=== PATIENT | female | born 1930 | race Caucasian/White ===

== ENCOUNTER 2016-11-09 01:05 | Emergency (ER) | payer OTHER ==
[2016-11-09 01:30] VITALS: RESP 16
--- NOTE | 2016-11-09 03:53 | EDPHY ---
H & P Stated Complaint: UNWITNESSED FALL Time Seen by Provider: 11/09/16 02:13 HPI/ROS: HPI The patient presents brought in by ambulance after a fall which occurred at her intermediate. Apparently, she was found on the ground after an unwitnessed fall. She was complaining that both of her hips hurt. She is not able to provide any further history because of her dementia. However review of her med list reveals that she is not on any anticoagulation REVIEW OF SYSTEMS Unable to obtain given patient's dementia. PMHx: COPD, CHF, atrial fibrillation Soc Hx: group home resident PHYSICAL General Appearance: Alert, no distress Eyes: Pupils equal and round no pallor or injection ENT, Mouth: Mucous membranes moist Respiratory: There are no retractions, lungs are clear to auscultation Cardiovascular: Regular rate Gastrointestinal: Abdomen is soft and non-tender, no masses, bowel sounds normal Neurological: A&O, moves all extremities Skin: Warm and dry, no rashes Musculoskeletal: Neck is supple non tender Extremities: symmetrical, full range of motion Source: EMS Exam Limitations: Physical impairment - Personal History Current Tetanus Diphtheria and Acellular Pertussis (TDAP): Unsure - Medical/Surgical History Other PMH: COPD,CHF,AFIB,UTI,DEMENTIA - Social History Smoking Status: Unknown if ever smoked Constitutional: Initial Vital Signs Temperature (C) 36.4 C 11/09/16 01:21 Heart Rate 89 11/09/16 01:21 Respiratory Rate 16 11/09/16 01:21 Blood Pressure 120/100 H 11/09/16 01:21 O2 Sat (%) 93 11/09/16 01:21 O2 Delivery Mode Nasal Cannula O2 (L/minute) 2 Allergies/Adverse Reactions: codeine Allergy (Verified 11/09/16 01:17) iodine Allergy (Verified 11/09/16 01:17) morphine Allergy (Verified 11/09/16 01:17) Sulfa (Sulfonamide Antibiotics) Allergy (Verified 11/09/16 01:17) Home Medications: Medication Instructions Recorded Aspirin 11/09/16 Digoxin 11/09/16 Fluticasone Furoate 11/09/16 GABAPENTIN 11/09/16 LYSINE 11/09/16 Omeprazole 11/09/16 Seroquel 11/09/16 traZODone 11/09/16 Medical Decision Making - Diagnostics Imaging: CT head non con reveals no acute intracranial hemorrhage, discussed with Dr. Patel of Radiology. CT hips two views shows left right hip arthroplasty, no fracture visualized, interpreted by me, radiology interpretation is pending. Differential Diagnosis: This is an 86-year-old intermediate resident with dementia, who is brought in by ambulance after an unwitnessed fall, complaining of hip pain though able to ambulate. She has no external signs of trauma that I can see. Differential diagnosis includes hip fracture, hip dislocation, intracranial hemorrhage. In the emergency room, patient had x-rays of her hips and CT of her head performed which showed no acute injuries. She will be discharged back to her intermediate. Departure - Departure Disposition: Home, Routine, Self-Care Clinical Impression: Fall Condition: Fair Instructions: Fall Prevention (ED) Referrals: ARMAND MARES [Primary Care Provider] - As per Instructions
[2016-11-09 05:24] VITALS: BP 115/75; PULSE 74; TEMP 98.1; O2SAT 95
== END 2016-11-09 05:15 | disposition home or self-care (01) ==
DX: Z04.3 Encounter for examination and observation following other accident (principal); J44.9 Chronic obstructive pulmonary disease, unspecified; I50.9 Heart failure, unspecified; W19.XXXA Unspecified fall, initial encounter; Y92.129 Unspecified place in nursing home as the place of occurrence of the external cause

== ENCOUNTER 2016-11-10 09:10 | Inpatient (IN) | payer OTHER ==
--- NOTE | 2016-11-10 09:24 | CPEKG ---
Heart Rate: 155 RR Interval: 387 QRSD Interval: 72 QT Interval: 252 QTC Interval: 405 QRS Dale: 62 T Wave Dale: 249 EKG Severity - ABNORMAL ECG - EKG Impression: ATRIAL FIBRILLATION WITH RAPID V-RATE EKG Impression: VENTRICULAR PREMATURE COMPLEX EKG Impression: ABNRM R PROG, CONSIDER ASMI OR LEAD PLACEMENT EKG Impression: REPOLARIZATION ABNORMALITY, PROB RATE RELATED Electronically Signed By: Tim Mckeon 10-Nov-2016 15:42:01
[2016-11-10] MEDS ORDERED: LORazepam 2 MG/ML INJ IVP ONE ×2 (09:44→14:00)
--- NOTE | 2016-11-10 09:44 | EDPHY ---
H & P Time Seen by Provider: 11/10/16 09:17 HPI/ROS: Chief complaint. Agitation HPI. 86-year-old female here by EMS with agitation from group home. She was seen yesterday in our emergency department after a fall and normal workup was discharged back to group home. Apparently she has had similar agitation with previous urinary tract infections and there is some evidence of apparently the patient has been diagnosed with the UTI but maybe not being treated. The patient is nonverbal and does not express any particular concerns or discomfort. She is agitated. ROS Constitutional. no fever/chills, no weakness Eyes. no problems with vision ENT. no sore throat, no nasal drainage Cardiovascular. no chest pain Respiratory. no shortness of breath, no cough Abdominal. no abdominal pain, no nausea/vomiting, no diarrhea . Possible urinary tract infection MS. no calf pain/swelling, no neck/back pain, no joint pain Skin. no rash Lymph. no swollen glands Neuro. Agitated Past Medical/Surgical History: Past medical history COPD, congestive heart failure, atrial fibrillation, dementia Social History: , nonsmoker, no alcohol. Lives at [facility] Smoking Status: Unknown if ever smoked Physical Exam: General Appearance: Agitated nonverbal well-developed female mild distress vital signs are stable though initial heart rate 112 Eyes: Pupils equal and round no pallor or injection. ENT, Mouth: Mucous membranes are moist. Respiratory: There are no retractions, lungs are clear to auscultation. Cardiovascular: Irregularly irregular rate and rhythm Gastrointestinal: Abdomen is soft and nontender, no masses, bowel sounds normal. Neurological: Awake and alert, sensory and motor exams grossly normal. Skin: Warm and dry, no rashes. Musculoskeletal: Neck is supple nontender. Extremities symmetrical, full range of motion. Psychiatric: Patient is nonverbal. She is agitated Constitutional: Initial Vital Signs Temperature (C) 36.7 C 11/10/16 09:21 Heart Rate 112 H 11/10/16 09:21 Respiratory Rate 18 11/10/16 09:21 Blood Pressure 173/106 H 11/10/16 09:21 O2 Sat (%) 93 11/10/16 09:21 O2 Delivery Mode Nasal Cannula O2 (L/minute) 2 Allergies/Adverse Reactions: codeine Allergy (Verified 11/10/16 09:24) iodine Allergy (Verified 11/10/16 09:24) morphine Allergy (Verified 11/10/16 09:24) Sulfa (Sulfonamide Antibiotics) Allergy (Verified 11/10/16 09:24) Home Medications: Medication Instructions Recorded Aspirin 11/09/16 Digoxin 11/09/16 Fluticasone Furoate 11/09/16 GABAPENTIN 11/09/16 LYSINE 11/09/16 Omeprazole 11/09/16 Seroquel 11/09/16 traZODone 11/09/16 Ciprofloxacin [Cipro] 500 mg PO BID #14 tab 11/10/16 Medical Decision Making - Diagnostics EKG Interpretation: EKG interpreted by me shows atrial fibrillation with normal axis. QRS is normal. Ventricular response is 155 Imaging: Chest x-ray shows no evidence for pneumonia Review of her head CT yesterday shows no evidence of intracranial injury. No hip fracture Procedures: IV normal saline, Ativan IV ED Course/Re-evaluation: Patient is treated with Ativan for her agitation. She does have evidence of slight UTI. She has apparently not been taking her oral Cipro with regularity. She is given an IV dose of Levaquin here in the emergency department When we attempted to discharge the patient the daughter was contacted and tells our nurse that she discharge her mother from [facility] today. She also declines come get the patient. The patient has effectively been abandoned without now in the destination. I discussed the case with Dr. Vance, hospitalist, who agrees to the admission. I have also discussed the case and have patient medical customer service representative trying to contact the daughter further as well as looking for placement Differential Diagnosis: Patient was seen yesterday after a fall and had normal workup including negative head CT. I reviewed the CT and hip x-rays thinking that the patient may have trauma. The daughter says that patient has agitation like this when she has a UTI. She does indeed have a mild UTI. No evidence for pneumonia - Data Points Laboratory Results: Laboratory Results 11/10/16 09:20 11/10/16 09:20 11/10/16 11/10/16 11/10/16 12:40 10:35 09:20 WBC RBC Hgb Hct MCV MCH MCHC RDW Plt Count MPV Neut % (Auto) Lymph % (Auto) Kaufman % (Auto) Eos % (Auto) Baso % (Auto) Nucleat RBC Rel Count Absolute Neuts (auto) Absolute Lymphs (auto) Absolute Monos (auto) Absolute Eos (auto) Absolute Basos (auto) Absolute Nucleated RBC Immature Gran % Immature Gran # Sodium 147 mEq/L H mEq/L (134-144) Potassium 5.1 mEq/L mEq/L (3.5-5.2) Chloride 107 mEq/L mEq/L (97-110) Carbon Dioxide 23 mEq/l mEq/l (22-31) Anion Gap 17 mEq/L H mEq/L (8-16) BUN 40 mg/dL H mg/dL (7-23) Creatinine 0.5 mg/dL L mg/dL (0.6-1.0) Estimated GFR > 60 Glucose 129 mg/dL H mg/dL (70-100) Calcium 9.8 mg/dL mg/dL (8.5-10.4) Troponin I 0.029 ng/mL ng/mL (0-0.034) Specimen Hemolysis 168 Urine Color YELLOW REJ Urine Appearance CLEAR TNP Urine pH 5.0 TNP (5.0-7.5) Ur Specific Gamaliel 1.026 TNP (1.002-1.030) Urine Protein 1+ H TNP (NEGATIVE) Urine Ketones 1+ H TNP (NEGATIVE) Urine Blood NEGATIVE TNP (NEGATIVE) Urine Nitrate NEGATIVE TNP (NEGATIVE) Urine Bilirubin NEGATIVE TNP (NEGATIVE) Urine Urobilinogen NEGATIVE EU EU TNP (0.2-1.0) Ur Leukocyte Esterase NEGATIVE TNP (NEGATIVE) Urine RBC 1-3 /hpf /hpf (0-3) Urine WBC 3-5 /hpf H /hpf (0-3) Ur Epithelial Cells NONE SEEN /lpf /lpf (NONE-1+) Urine Mucus TRACE /lpf /lpf (NONE-1+) Ur Culture Indicated? NOT INDICATED TNP (NI) Urine Glucose NEGATIVE TNP (NEGATIVE) 11/10/16 09:20 WBC 9.10 10^3/uL 10^3/uL (3.80-9.50) RBC 4.41 10^6/uL 10^6/uL (4.18-5.33) Hgb 13.4 g/dL g/dL (12.6-16.3) Hct 42.9 % % (38.0-47.0) MCV 97.3 fL fL (81.5-99.8) MCH 30.4 pg pg (27.9-34.1) MCHC 31.2 g/dL L g/dL (32.4-36.7) RDW 14.0 % % (11.5-15.2) Plt Count 447 10^3/uL H 10^3/uL (150-400) MPV 10.7 fL fL (8.7-11.7) Neut % (Auto) 76.7 % H % (39.3-74.2) Lymph % (Auto) 14.2 % L % (15.0-45.0) Kaufman % (Auto) 8.6 % % (4.5-13.0) Eos % (Auto) 0.0 % L % (0.6-7.6) Baso % (Auto) 0.2 % L % (0.3-1.7) Nucleat RBC Rel Count 0.0 % % (0.0-0.2) Absolute Neuts (auto) 6.98 10^3/uL H 10^3/uL (1.70-6.50) Absolute Lymphs (auto) 1.29 10^3/uL 10^3/uL (1.00-3.00) Absolute Monos (auto) 0.78 10^3/uL 10^3/uL (0.30-0.80) Absolute Eos (auto) 0.00 10^3/uL L 10^3/uL (0.03-0.40) Absolute Basos (auto) 0.02 10^3/uL 10^3/uL (0.02-0.10) Absolute Nucleated RBC 0.00 10^3/uL 10^3/uL (0-0.01) Immature Gran % 0.3 % % (0.0-1.1) Immature Gran # 0.03 10^3/uL 10^3/uL (0.00-0.10) Sodium Potassium Chloride Carbon Dioxide Anion Gap BUN Creatinine Estimated GFR Glucose Calcium Troponin I Specimen Hemolysis Urine Color Urine Appearance Urine pH Ur Specific Gamaliel Urine Protein Urine Ketones Urine Blood Urine Nitrate Urine Bilirubin Urine Urobilinogen Ur Leukocyte Esterase Urine RBC Urine WBC Ur Epithelial Cells Urine Mucus Ur Culture Indicated? Urine Glucose Medications Given: Discontinued Medications Sodium Chloride (Ns) 1,000 mls @ 0 mls/hr IV ONCE ONE PRN Reason: Wide Open Stop: 11/10/16 11:20 Last Admin: 11/10/16 11:19 Dose: 1,000 mls Lorazepam (Ativan Injection) 1 mg IVP EDNOW ONE Stop: 11/10/16 09:45 Last Admin: 11/10/16 09:57 Dose: 1 mg Lorazepam (Ativan) 1 mg PO EDNOW ONE Stop: 11/10/16 12:47 Last Admin: 11/10/16 12:47 Dose: 1 mg Lorazepam (Ativan Injection) 1 mg IVP EDNOW ONE Stop: 11/10/16 14:01 Last Admin: 11/10/16 14:00 Dose: 1 mg Olanzapine (Zyprexa Zydis) 5 mg PO EDNOW ONE Stop: 11/10/16 14:38 Last Admin: 11/10/16 14:51 Dose: 5 mg Trazodone HCl (Trazodone) 50 mg PO EDNOW ONE Stop: 11/10/16 14:31 Last Admin: 11/10/16 14:39 Dose: Not Given Departure - Departure Disposition: [facility] Clinical Impression: Urinary tract infection Qualifiers: Urinary tract infection type: acute cystitis Hematuria presence: without hematuria Qualified Code(s): N30.00 - Acute cystitis without hematuria Condition: Fair
[2016-11-10 09:51] LABS: % IMMATURE GRANULYOCYTES 0.3 % (0.0-1.1); ABSOLUTE IMMATURE GRANULOCYTES 0.03 10^3/uL (0.00-0.10); ADD DIFF? NO; ADD MORPH? NO; ADD SCAN? NO; ATYPICAL LYMPHOCYTE FLAG 0 (0-99); FRAGMENT RBC FLAG 0 (0-99); HEMATOCRIT 42.9 % (38.0-47.0); HEMOGLOBIN 13.4 g/dL (12.6-16.3); LEFT SHIFT FLG 0 (0-99); LIPEMIA HEMOLYSIS FLAG 80 (0-99); MEAN CELL HEMOGLOBIN 30.4 pg (27.9-34.1); MEAN CELL HEMOGLOBIN CONCENTR. 31.2 g/dL (32.4-36.7); MEAN CELL VOLUME 97.3 fL (81.5-99.8); MEAN PLATELET VOLUME 10.7 fL (8.7-11.7); PLATELET CLUMPS FLAG 10 (0-99); PLATELET COUNT 447 10^3/uL (150-400); RED BLOOD CELL COUNT 4.41 10^6/uL (4.18-5.33)
[2016-11-10 09:58] LABS: ANION GAP 17 mEq/L (8-16); CALCIUM 9.8 mg/dL (8.5-10.4); CARBON DIOXIDE 23 mEq/l (22-31); CHLORIDE 107 mEq/L (97-110); CREATININE 0.5 mg/dL (0.6-1.0); GLOMERULAR FILTRATION RATE > 60; GLUCOSE 129 mg/dL (70-100); POTASSIUM 5.1 mEq/L (3.5-5.2); SODIUM 147 mEq/L (134-144); SPECIMEN HEMOLYSIS 168
[2016-11-10 10:10] LABS: TROPONIN I 0.029 ng/mL (0-0.034)
[2016-11-10] MEDS ORDERED: NS 1,000 ML IV ONE (11:19)
[2016-11-10] MEDS ORDERED: LORazepam 2 MG/ML INJ ONE ×2 (12:28→13:55)
[2016-11-10] MEDS ORDERED: LORazepam 1 MG TAB PO ONE (12:46)
[2016-11-10 12:54] LABS: COLOR YELLOW; LEUKOCYTE ESTERASE,URINE NEGATIVE (NEGATIVE); NITRITE,URINE NEGATIVE (NEGATIVE)
[2016-11-10 12:58] LABS: MUCUS TRACE /lpf (NONE-1+)
[2016-11-10] MEDS ORDERED: traZODone 50 MG TAB PO ONE (14:30)
[2016-11-10] MEDS ORDERED: OLANZapine DISINTEGR 5 MG TAB PO ONE (14:37)
[2016-11-10] MEDS ORDERED: OLANZapine DISINTEGR 5 MG TAB ONE (14:38)
[2016-11-10] MEDS ORDERED: ONDANSETRON 4 MG/2 ML VIAL IVP PRN (15:12)
[2016-11-10] MEDS ORDERED: ONDANSETRON DISINTEGRATING 4 MG TAB PO PRN (15:12)
--- NOTE | 2016-11-10 15:22 | PDGENHP ---
History and Physical - Chief Complaint Acute agitation - History of Present Illness Primary care provider: Dr. Mae Murphy in [place] HPI: 86-year-old female presenting with acute agitation characterized as restlessness, uncooperative behavior with associated unwitnessed fall on the day prior to this presentation and resultant pain located in the bilateral hips. Per report from patient's daughter, the patient had onset of mental status changes approximately 4 days prior, with persistent duration thereafter, and a urinalysis was performed which demonstrated positive leukocyte Estrace, positive white blood cells, occasional bacteria, ketones. Patient was initiated on oral ciprofloxacin 250 mg twice daily and this was administered to the patient for 2 days. The patient's mental status continued to decline and she stopped eating and drinking 2 days prior to this presentation and she has consequently not received oral antibiotics for the past 2 days. The patient's daughter reports that she has potentially not been receiving her regular medications which include as needed oxycodone for pain relief and the patient usually utilizes this medication to alleviate osteoarthritic pain. She has also reportedly not been taking any of her other cardiac medications. The patient had been living independently in an apartment prior to experiencing fall which resulted in a hospitalization at [facility] in late September 2016. The patient was transferred from [facility] to [facility] on 10/18/2016. While the patient has been at [facility], the daughter has become concerned about the care she is receiving there. Although she has requested that the patient continue to receive cranberry juice as a homeopathic prevention of UTI, the patient has not been receiving the cranberry juice for over a week. History Information - Allergies/Home Medication List Allergies/Adverse Reactions: codeine Allergy (Verified 11/10/16 09:24) iodine Allergy (Verified 11/10/16 09:24) morphine Allergy (Verified 11/10/16 09:24) Sulfa (Sulfonamide Antibiotics) Allergy (Verified 11/10/16 09:24) Home Medications: Aspirin 11/09/16 [Last Taken Unknown] Digoxin 11/09/16 [Last Taken Unknown] Fluticasone Furoate 11/09/16 [Last Taken Unknown] GABAPENTIN 11/09/16 [Last Taken Unknown] LYSINE 11/09/16 [Last Taken Unknown] Omeprazole 11/09/16 [Last Taken Unknown] Seroquel 11/09/16 [Last Taken Unknown] traZODone 11/09/16 [Last Taken Unknown] I have personally reviewed and updated: family history, medical history, social history, surgical history - Past Medical History atrial fibrillation (On aspirin for CVA prevention), CHF (Unclear type), COPD, dementia (Moderate severity, patient is able to verbally communicate physical wants and needs but does not otherwise engage in complex conversation, she had been caring for self prior to her fall experienced in September of 2016) Additional medical history: KAROL with nocturnal oxygen. Chronic pain with continuous opiate dependency - Surgical History Reports: no pertinent surgical hx - Family History Additional family history: No recent sick family contacts - Social History Smoking Status: Unknown if ever smoked Alcohol Use: None Drug Use: None Additional social history: Completely dependent in ADLs, residing at [facility] Review of Systems ROS: 10pt was reviewed & negative except for what was stated in HPI & below Neurological: Reports: other (Agitated, encephalopathic) Physical Exam Temp Pulse Resp BP Pulse Ox 36.7 C 112 H 20 130/98 H 92 11/10/16 09:21 11/10/16 15:04 11/10/16 15:04 11/10/16 14:34 11/10/16 15:04 O2 (L/minute) 2 Constitutional: chronically ill appearing, uncomfortable, cachectic, No no apparent distress (Visibly distressed), No not in pain Ears, Nose, Mouth, Throat: no oral mucosal ulcers, other (Tacky mucous membranes ) Cardiovascular: irregularly irregular, tachycardia, edema (Trace left lower extremity), No systolic murmur Respiratory: no respiratory distress, no rales or rhonchi, clear to auscultation Gastrointestinal: normoactive bowel sounds, soft, non-tender abdomen, no palpable masses Skin: other (Scattered abrasions and fading ecchymoses) Musculoskeletal: other (Proximal muscle wasting upper extremities, lower extremities, full range of motion of the bilateral knees without pain) Neurologic: other (Alert awake oriented times 0), No facial droop Psychiatric: agitated, other (Poor concentration, patient refuses to participate in an in depth neurologic exam) Lab Data & Imaging Review 11/10/16 09:20 11/10/16 09:20 WBC 9.10 10^3/uL (3.80-9.50) 11/10/16 09:20 RBC 4.41 10^6/uL (4.18-5.33) 11/10/16 09:20 Hgb 13.4 g/dL (12.6-16.3) 11/10/16 09:20 Hct 42.9 % (38.0-47.0) 11/10/16 09:20 MCV 97.3 fL (81.5-99.8) 11/10/16 09:20 MCH 30.4 pg (27.9-34.1) 11/10/16 09:20 MCHC 31.2 g/dL (32.4-36.7) L 11/10/16 09:20 RDW 14.0 % (11.5-15.2) 11/10/16 09:20 Plt Count 447 10^3/uL (150-400) H 11/10/16 09:20 MPV 10.7 fL (8.7-11.7) 11/10/16 09:20 Neut % (Auto) 76.7 % (39.3-74.2) H 11/10/16 09:20 Lymph % (Auto) 14.2 % (15.0-45.0) L 11/10/16 09:20 Lee % (Auto) 8.6 % (4.5-13.0) 11/10/16 09:20 Eos % (Auto) 0.0 % (0.6-7.6) L 11/10/16 09:20 Baso % (Auto) 0.2 % (0.3-1.7) L 11/10/16 09:20 Nucleat RBC Rel Count 0.0 % (0.0-0.2) 11/10/16 09:20 Absolute Neuts (auto) 6.98 10^3/uL (1.70-6.50) H 11/10/16 09:20 Absolute Lymphs (auto) 1.29 10^3/uL (1.00-3.00) 11/10/16 09:20 Absolute Monos (auto) 0.78 10^3/uL (0.30-0.80) 11/10/16 09:20 Absolute Eos (auto) 0.00 10^3/uL (0.03-0.40) L 11/10/16 09:20 Absolute Basos (auto) 0.02 10^3/uL (0.02-0.10) 11/10/16 09:20 Absolute Nucleated RBC 0.00 10^3/uL (0-0.01) 11/10/16 09:20 Immature Gran % 0.3 % (0.0-1.1) 11/10/16 09:20 Immature Gran # 0.03 10^3/uL (0.00-0.10) 11/10/16 09:20 Sodium 147 mEq/L (134-144) H 11/10/16 09:20 Potassium 5.1 mEq/L (3.5-5.2) 11/10/16 09:20 Chloride 107 mEq/L (97-110) 11/10/16 09:20 Carbon Dioxide 23 mEq/l (22-31) 11/10/16 09:20 Anion Gap 17 mEq/L (8-16) H 11/10/16 09:20 BUN 40 mg/dL (7-23) H 11/10/16 09:20 Creatinine 0.5 mg/dL (0.6-1.0) L 11/10/16 09:20 Estimated GFR > 60 11/10/16 09:20 Glucose 129 mg/dL (70-100) H 11/10/16 09:20 Calcium 9.8 mg/dL (8.5-10.4) 11/10/16 09:20 Troponin I 0.029 ng/mL (0-0.034) 11/10/16 09:20 Specimen Hemolysis 168 11/10/16 09:20 Urine Color YELLOW 11/10/16 12:40 Urine Appearance CLEAR 11/10/16 12:40 Urine pH 5.0 (5.0-7.5) 11/10/16 12:40 Ur Specific [place] 1.026 (1.002-1.030) 11/10/16 12:40 Urine Protein 1+ (NEGATIVE) H 11/10/16 12:40 Urine Ketones 1+ (NEGATIVE) H 11/10/16 12:40 Urine Blood NEGATIVE (NEGATIVE) 11/10/16 12:40 Urine Nitrate NEGATIVE (NEGATIVE) 11/10/16 12:40 Urine Bilirubin NEGATIVE (NEGATIVE) 11/10/16 12:40 Urine Urobilinogen NEGATIVE EU (0.2-1.0) 11/10/16 12:40 Ur Leukocyte Esterase NEGATIVE (NEGATIVE) 11/10/16 12:40 Urine RBC 1-3 /hpf (0-3) 11/10/16 12:40 Urine WBC 3-5 /hpf (0-3) H 11/10/16 12:40 Ur Epithelial Cells NONE SEEN /lpf (NONE-1+) 11/10/16 12:40 Urine Mucus TRACE /lpf (NONE-1+) 11/10/16 12:40 Ur Culture Indicated? NOT INDICATED (NI) 11/10/16 12:40 Urine Glucose NEGATIVE (NEGATIVE) 11/10/16 12:40 Visualized and Interpreted Chest x-ray results: Yes Chest X-Ray results: no infiltrate, other (Hyperinflated) EKG Interpretation: Positive for: other (Atrial fibrillation with Q-waves in leads V2 through V3) Assessment & Plan Assessment: 86-year-old female presents with acute on chronic encephalopathy in the setting of suspected urinary tract infection Plan: 1. Acute on chronic encephalopathy. Acute, new problem this provider, further workup is indicated. Evidenced by global brain dysfunction characterized as agitation plus uncooperative behavior plus significant decline in cognitive functioning over the past 2 days resulting in patient unable to eat or drink, this is objectively an acute change from her baseline which is normally able to verbally communicate wants and needs as well as participate cooperatively in daily care, confirmed with her daughter, most likely secondary to a combination of toxic encephalopathy from inaffectively treated urinary tract infection and metabolic encephalopathy from dehydration/uremia -the patient's acute presentation is drastically different than her chronic dementia at baseline -send influenza PCR to rule out other potential causes -treat infection and dehydration -repeat chemistry and CBC in a.m. -utilize sitter preferentially for behavior modification, IV Haldol if patient safety is at risk 2. Dehydration/uremia. Acute, evidenced by BUN of 40 with a creatinine of 0.5 as well as ketones and protein in the urinalysis and a history of not eating and drinking for at least 48 hours -most likely exacerbated by her present mental status, which then exacerbate her mental status -provide IV D5/normal saline at 100 cc an hour -repeat serum chemistry in a.m. 3. Suspected urinary tract infection. In affectively treated as an outpatient with oral ciprofloxacin, patient unable to tolerate oral intake for the past 48 hours necessitating IV antibiotics in order to successfully treat -day 1 IV levofloxacin, continue for total of 3 days -will of attempt to obtain outside urine culture results from [facility]cie[facility] to help narrow spectrum coverage 4. Atrial fibrillation. Suspect per minute, continue patient on digoxin and diltiazem orally once she is able to tolerate oral intake -will give 1 dose of IV digoxin given that she is experiencing rapid ventricular response and has not been able to tolerate oral meds recently -continue aspirin 5. Congestive heart failure. Chronic, unclear type, will order outside records from primary care provider office to determine the exact type 6. COPD. Chronic, no indication of acute exacerbation 7. Chronic pain with continuous opiate dependency. Monitor patient closely for symptoms of pain as she has not been receiving her oral oxycodone for the past 2 days and would provide her with low-dose IV Dilaudid if she appears to be in pain 8. Obstructive sleep apnea. Continue patient on nocturnal oxygen Diet. Regular as tolerated Prophylaxis. High risk patient Lovenox 40 Code status. Do not resuscitate per her daughter who is her MPOA Disposition. Anticipated discharge is 11/11/2016, pending clinical resolution of condition outlined above. If patient's clinical status remains significantly altered from baseline, she will require upgraded to inpatient admission status at that time. I have discussed this patient's presentation with Dr. Tim Mckeon in the emergency department, we both agree that is appropriate to monitor this patient on a telemetry unit given her Afib RVR. I have discussed the patient's presentation with her daughter Makenzie who has provided a significant amount of the history provided in this note. Her daughter reports that she has received approval for transfer to a different facility once the patient's medical status has stabilized. Our emergency department case management coordinator is confirming the details with this daughter.
[2016-11-10] MEDS ORDERED: DIGOXIN 500 MCG/2 ML AMP IVP ONE (15:35)
[2016-11-10] MEDS: HYDROmorphONE/DILAUDID 1 MG/ML SYR IVP PRN ×2 (16:00→20:07)
[2016-11-10] MEDS: HALOPERIDOL LACT 5 MG/ML INJ IVP PRN (16:58)
[2016-11-10] MEDS ORDERED: OXYCODONE HCL 5 MG PO PRN (17:08)
[2016-11-10] MEDS ORDERED: ALBUTEROL 3 ML DEYVIAL IH PRN (17:08)
[2016-11-10] MEDS ORDERED: ALBUTEROL 60 PUFFS/8 GM MDI IH PRN (17:08)
[2016-11-10] MEDS ORDERED: Herbals/Supplements -Info Only PO SCH (17:30)
[2016-11-10] MEDS ORDERED: oxyCODONE IR 5 MG TAB PO PRN (17:54)
[2016-11-10] MEDS: FLUTICASONE PROPIONATE IH SCH (20:32)
[2016-11-10] MEDS ORDERED: NON-FORMULARY NEW DRUG (Mirtazapine [Remeron] 15 MG) PO SCH (21:00)
[2016-11-10] MEDS: QUEtiapine FUMARATE 25 MG TAB PO SCH (21:59)
[2016-11-10] MEDS: MIRTAZAPINE 15 MG TAB PO SCH (21:59)
[2016-11-10] MEDS: traZODone 50 MG TAB PO SCH (21:59)
[2016-11-10] MEDS: D5W 1/2 NS 1,000 ML IV SCH (22:01)
[2016-11-10] MEDS: guaiFENesin 600 MG TAB.ER PO SCH (22:24)
[2016-11-10] MEDS: LIDOCAINE 3% TP SCH (22:24)
[2016-11-10] MEDS: DILTIAZEM 30 MG TAB PO SCH (22:25)
[2016-11-10] MEDS: NORTRIPTYLINE HCL 10 MG CAP PO SCH (22:25)
[2016-11-10] MEDS: ACETAMINOPHEN 500 MG TAB PO SCH (22:26)
[2016-11-11] MEDS: HALOPERIDOL LACT 5 MG/ML INJ IVP PRN ×3 (00:03→18:16)
[2016-11-11] MEDS: HYDROmorphONE/DILAUDID 1 MG/ML SYR IVP PRN ×4 (01:08→20:53)
[2016-11-11] MEDS: DILTIAZEM 30 MG TAB PO SCH ×2 (05:04→12:16)
[2016-11-11 06:10] LABS: ALANINE AMINOTRANSFERASE 57 IU/L (9-52); ALBUMIN 3.4 g/dL (3.5-5.0); ALKALINE PHOSPHATASE 82 IU/L (38-126); ANION GAP 11 mEq/L (8-16); ASPARTATE AMINOTRANSFERASE 48 IU/L (14-46); BILIRUBIN,TOTAL 0.9 mg/dL (0.1-1.4); CALCIUM 9.1 mg/dL (8.5-10.4); CARBON DIOXIDE 23 mEq/l (22-31); CHLORIDE 112 mEq/L (97-110); CREATININE 0.5 mg/dL (0.6-1.0); GLOMERULAR FILTRATION RATE > 60; GLUCOSE 110 mg/dL (70-100); MAGNESIUM 2.2 mg/dL (1.6-2.3); POTASSIUM 3.7 mEq/L (3.5-5.2); SODIUM 146 mEq/L (134-144); TOTAL PROTEIN 6.2 g/dL (6.3-8.2)
[2016-11-11] MEDS ORDERED: OLANZapine 10 MG/2 ML VIAL IM ONE (07:41)
[2016-11-11] MEDS ORDERED: NON-FORMULARY NEW DRUG (Omeprazole [Prilosec 20 Mg] 20 MG) PO SCH (09:00)
[2016-11-11] MEDS ORDERED: oxyCODONE IR 5 MG TAB PO PRN (09:19)
[2016-11-11] MEDS ORDERED: CEFTRIAXONE IM 350 MG/ML SYRINGE IM SCH (09:30)
[2016-11-11] MEDS: FLUTICASONE NASAL 120 SPRAYS/16 GM MDI EACHNARE SCH (09:38)
[2016-11-11] MEDS: FLUTICASONE PROPIONATE IH SCH ×2 (09:40→22:20)
[2016-11-11] MEDS: D5W 1/2 NS 1,000 ML IV SCH ×2 (09:43→19:52)
[2016-11-11] MEDS: ENOXAPARIN 40 MG/0.4 ML SYR SC SCH (11:13)
[2016-11-11] MEDS: ASPIRIN 81 MG CHEWABLE TAB PO SCH (11:14)
[2016-11-11] MEDS: ACETAMINOPHEN 500 MG TAB PO SCH ×2 (11:14→22:19)
[2016-11-11] MEDS: guaiFENesin 600 MG TAB.ER PO SCH ×2 (11:14→22:20)
[2016-11-11] MEDS: MULTIVITAMINS 1 EACH TAB PO SCH (11:15)
[2016-11-11] MEDS: LIDOCAINE 3% TP SCH ×3 (11:15→22:20)
[2016-11-11] MEDS: oxyCODONE IR 5 MG TAB PO SCH (11:15)
[2016-11-11] MEDS: PANTOPRAZOLE SODIUM 40 MG TAB PO SCH (11:17)
[2016-11-11] MEDS: POLYETHYLENE GLYCOL 3350 17 GM PKT PO SCH (11:17)
[2016-11-11] MEDS: QUEtiapine FUMARATE 25 MG TAB PO SCH ×2 (11:17→22:21)
--- NOTE | 2016-11-11 11:19 | HOSPPROG ---
Hospitalist Progress Note Assessment/Plan: Assessment: 86-year-old female presents with acute on chronic encephalopathy in the setting of suspected urinary tract infection Plan: 1. Acute on chronic encephalopathy. Evidenced by global brain dysfunction characterized as agitation plus uncooperative behavior plus significant decline in cognitive functioning over the past 2 days resulting in patient unable to eat or drink, this is objectively an acute change from her baseline which is normally able to verbally communicate wants and needs as well as participate cooperatively in daily care, confirmed with her daughter, most likely secondary to a combination of toxic encephalopathy from ineffectively treated urinary tract infection and metabolic encephalopathy from dehydration/uremia -the patient's acute presentation is drastically different than her chronic dementia at baseline -remains densely encephalopathic today -utilize sitter preferentially for behavior modification, IV Haldol if patient safety is at risk 2. Dehydration/uremia. Acute, evidenced by BUN of 40 with a creatinine of 0.5 as well as ketones and protein in the urinalysis and a history of not eating and drinking for at least 48 hours -most likely exacerbated by her present mental status, which then exacerbate her mental status -provide IV D5/normal saline at 100 cc an hour -attempt to replace IV line 3. Suspected urinary tract infection. In affectively treated as an outpatient with oral ciprofloxacin, patient unable to tolerate oral intake for the past 48 hours necessitating IV antibiotics in order to successfully treat -day 2 IV Abx, continue for total of 3 days -will of attempt to obtain outside urine culture results from [place] [facility] to help narrow spectrum coverage 4. Atrial fibrillation. Suspect permanent, continue patient on diltiazem orally once she is able to tolerate oral intake -holding digoxin given elevated level -continue aspirin 5. Congestive heart failure. Chronic, unclear type, will order outside records from primary care provider office to determine the exact type 6. COPD. Chronic, no indication of acute exacerbation 7. Chronic pain with continuous opiate dependency. Restart oral oxy IR lower dosage, PRN iv dilaudid 8. Obstructive sleep apnea. Continue patient on nocturnal oxygen 9. Severe protein calorie malnutrition. Evidenced by prox muscle wasting and cachexia w/ low BMI -dietary consult -ensure w/ meals Diet. Regular as tolerated Prophylaxis. High risk patient Lovenox 40 Code status. Do not resuscitate per her daughter who is her MPOA Disposition. Anticipated discharge uncertain, upgrade to inpatient admission status given that anticipated LOS > 48hrs for reasonable medical necessity including persistent acute encephalopathy, not tolerating oral intake Subjective: Continues to be agitated, not following commands Objective: Vital Signs Temp Pulse Resp BP Pulse Ox 36.0 C 170 H 20 131/95 H 91 L 11/11/16 00:00 11/11/16 08:00 11/11/16 00:00 11/11/16 00:00 11/11/16 08:00 Laboratory Results 11/11/16 05:09 11/11/16 05:09 11/10/16 11/11/16 11/12/16 05:59 05:59 05:59 Intake Total 1050 Balance 1050 - Physical Exam Constitutional: chronically ill appearing, uncomfortable, cachectic, No no apparent distress (Moderate distress) Cardiovascular: irregularly irregular, tachycardia, No systolic murmur, No edema Respiratory: no respiratory distress, no rales or rhonchi, clear to auscultation Gastrointestinal: normoactive bowel sounds, soft, non-tender abdomen, no palpable masses Musculoskeletal: other (Proximal muscle wasting) Psychiatric: encephalopathic, agitated, other (Non directable, not following commands) ICD10 Worksheet Patient Problems: Problems Problem Status Onset Urinary tract infection Acute
--- NOTE | 2016-11-11 12:55 | WOCRNPDOC ---
WOCRN Advanced Assessment Note - Skin Integrity Problem, Advanced Assess Coccyx Puncture Wound Skin Integrity Problem Comment: Congenital dimple. Not a punture wound. No issue. Sacrum Pressure Injury Dressing Type: Open to Air Site Measurement - Head-to-Toe Length X Width X Depth (cm): 3x2x0 Pressure Injury Stage: Stage 1 Pressure Injury Present on Admit: Yes Skin Integrity Problem Comment: Multiple small stage 1 pressure injuries scattered throughout sacrum and coccyx. Patient cannot be offloaded as she has significantly altered mental status at this time and is non compliant and not teachable.
[2016-11-11] MEDS: DILTIAZEM 25 MG/5 ML VIAL IVP SCH ×3 (14:16→23:30)
[2016-11-11] MEDS: LORazepam 2 MG/ML INJ IVP PRN ×2 (15:05→23:26)
[2016-11-11] MEDS: morphINE 10 MG/0.5 ML UDSYR PO PRN (17:21)
[2016-11-11] MEDS: MIRTAZAPINE 15 MG TAB PO SCH (22:20)
[2016-11-11] MEDS: traZODone 50 MG TAB PO SCH (22:21)
[2016-11-11] MEDS: NORTRIPTYLINE HCL 10 MG CAP PO SCH (22:21)
[2016-11-12] MEDS: HYDROmorphONE/DILAUDID 1 MG/ML SYR IVP PRN ×7 (01:28→22:47)
[2016-11-12] MEDS: D5W 1/2 NS 1,000 ML IV SCH (04:19)
[2016-11-12 05:23] LABS: % IMMATURE GRANULYOCYTES 0.4 % (0.0-1.1); ABSOLUTE IMMATURE GRANULOCYTES 0.09 10^3/uL (0.00-0.10); ADD DIFF? NO; ADD MORPH? NO; ADD SCAN? NO; ATYPICAL LYMPHOCYTE FLAG 0 (0-99); FRAGMENT RBC FLAG 0 (0-99); HEMATOCRIT 43.6 % (38.0-47.0); HEMOGLOBIN 13.7 g/dL (12.6-16.3); LEFT SHIFT FLG 0 (0-99); LIPEMIA HEMOLYSIS FLAG 80 (0-99); MEAN CELL HEMOGLOBIN 31.2 pg (27.9-34.1); MEAN CELL HEMOGLOBIN CONCENTR. 31.4 g/dL (32.4-36.7); MEAN CELL VOLUME 99.3 fL (81.5-99.8); MEAN PLATELET VOLUME 11.1 fL (8.7-11.7); PLATELET CLUMPS FLAG 10 (0-99); PLATELET COUNT 323 10^3/uL (150-400); RED BLOOD CELL COUNT 4.39 10^6/uL (4.18-5.33); RED CELL DISTRIBUTION WIDTH 13.8 % (11.5-15.2)
[2016-11-12 05:30] LABS: ANION GAP 9 mEq/L (8-16); CALCIUM 8.9 mg/dL (8.5-10.4); CARBON DIOXIDE 27 mEq/l (22-31); CHLORIDE 107 mEq/L (97-110); CREATININE 0.4 mg/dL (0.6-1.0); GLOMERULAR FILTRATION RATE > 60; GLUCOSE 111 mg/dL (70-100); POTASSIUM 3.2 mEq/L (3.5-5.2); SODIUM 143 mEq/L (134-144)
[2016-11-12] MEDS: DILTIAZEM 25 MG/5 ML VIAL IVP SCH (06:00)
[2016-11-12] MEDS: LORazepam 2 MG/ML INJ IVP PRN ×4 (06:00→21:41)
[2016-11-12] MEDS: oxyCODONE IR 5 MG TAB PO SCH (08:48)
[2016-11-12] MEDS: ENOXAPARIN 40 MG/0.4 ML SYR SC SCH (08:55)
[2016-11-12] MEDS ORDERED: D5W 1/2 NS W/ 40 KCl/L 1,000 ML IV SCH (09:00)
[2016-11-12] MEDS: FLUTICASONE NASAL 120 SPRAYS/16 GM MDI EACHNARE SCH (09:04)
[2016-11-12] MEDS: FLUTICASONE PROPIONATE IH SCH ×2 (09:37→20:49)
[2016-11-12] MEDS: morphINE 10 MG/0.5 ML UDSYR PO PRN (10:11)
[2016-11-12] MEDS: ASPIRIN 81 MG CHEWABLE TAB PO SCH (10:16)
[2016-11-12] MEDS: ACETAMINOPHEN 500 MG TAB PO SCH (10:17)
[2016-11-12] MEDS: guaiFENesin 600 MG TAB.ER PO SCH (10:17)
[2016-11-12] MEDS: METOPROLOL TARTRATE 5 MG/5 ML INJ IVP SCH ×4 (10:33→23:09)
[2016-11-12] MEDS: LIDOCAINE 3% TP SCH ×2 (10:39→17:54)
[2016-11-12] MEDS: MULTIVITAMINS 1 EACH TAB PO SCH (13:22)
[2016-11-12] MEDS: POLYETHYLENE GLYCOL 3350 17 GM PKT PO SCH (13:23)
[2016-11-12] MEDS: QUEtiapine FUMARATE 25 MG TAB PO SCH (13:23)
[2016-11-12] MEDS: PANTOPRAZOLE SODIUM 40 MG TAB PO SCH (13:24)
--- NOTE | 2016-11-12 15:12 | HOSPPROG ---
Hospitalist Progress Note Assessment/Plan: Assessment: 86-year-old female presents with acute on chronic encephalopathy in the setting of suspected urinary tract infection, SIRS Plan: 1. Acute on chronic encephalopathy. Evidenced by global brain dysfunction characterized as agitation plus uncooperative behavior plus significant decline in cognitive functioning over the past several days resulting in patient unable to eat or drink, this is reportedly an objective, acute change from her baseline which is normally able to verbally communicate wants and needs as well as participate cooperatively in daily care, confirmed with her daughter, most likely secondary to a combination of toxic encephalopathy from ineffectively treated urinary tract infection and metabolic encephalopathy from dehydration/ uremia -the patient's acute presentation is drastically different than her chronic dementia at baseline -remains densely encephalopathic today -utilizing sitter preferentially for behavior modification, IV ativan has been helpful (takes chronically), as has pain Rx as her agitation seems to be significantly impacted by pain -outside records reviewed (clinic note from 10/15/16 by Mae Murphy PCP, documents patient's physical and cognitive decline since 09/06 w/ significant decline in oral intake, concerns that patient was "starving", confirmed that patient required SNF level care, and suggested palliative care/hospice to daughter at that time) -given that patient is demonstrating worsening clinical and cognitive status, and she seems very physically uncomfortable, I would recommend hospice and comfort care to the patient, and a palliative consult has been placed to help facilitate this discussion w/ the daughter MPOA 2. Dehydration/uremia. Acute, evidenced by BUN of 40 with a creatinine of 0.5 as well as ketones and protein in the urinalysis and a history of not eating and drinking prior to arrival -responded to IVF -stop IVF now that CXR indicative of evolving CHF -monitor daily 3. Suspected urinary tract infection. Ineffectively treated as an outpatient with oral ciprofloxacin, patient unable to tolerate oral intake [employer], necessitating IV antibiotics in order to successfully treat -day 3/3 IV Abx 4. Atrial fibrillation. Suspect permanent, uncontrolled RVR, patient not taking oral meds well so she has not been getting her oral diltiazem and did not appreciably respond to dilt boluses -holding digoxin given elevated level -continue aspirin -adjusted to scheduled IV metoprolol -escalating care to PCU for dilt gtt inappropriate as the patient has been taking off tele and this would place patient at high risk of iatrogenic medication overdose if administered w/o tele, so will continue to manage at this level of care -RVR likely contributing to some overload noted on CXR (personally interpreted) , options limited for rate control 5. Chronic systolic congestive heart failure. Chronic, systolic per PCP records , has had two admission for volume overload over past 2 months -holding lasix right now, as PO intake poor -stop IVF, monitor o2 requirements -if resp status worsening, would give IV lasix 6. COPD. Chronic, no indication of acute exacerbation 7. 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 Restarted oral oxy IR lower dosage, PRN iv dilaudid, PO roxanol at RN discretion -recommend comfort care/hospice, as the patient seems quite uncomfortable and chance of clinical improvement is low -cont IV ativan PRN 8. Obstructive sleep apnea. Continue patient on nocturnal oxygen 9. Severe protein calorie malnutrition. Evidenced by prox muscle wasting and cachexia w/ low BMI -dietary consult -ensure w/ meals 10. Pressure injury. POA, appreciate wound care note/tx 11. SIRS. Acute, new problem, further w/u indicated. Tachycardia + worsening leukocytosis, unclear source. -CXR w/o infiltrate -flu PCR neg -BCx sent -CDiff if diarrhea -unable to determine whether localizing signs of infxn -holding IVF given CHF, cont on CTX Diet. Regular as tolerated Prophylaxis. High risk patient Lovenox 40 Code status. Do not resuscitate per her daughter who is her MPOA Disposition. Anticipated discharge uncertain, pending palliative/hospice consultation above. Patient is high risk of morbidity / mortality based on the constellation of medical comorbidities above. Subjective: patient receiving as needed Dilaudid for pain, as needed Ativan for agitation, appears very uncomfortable Objective: Vital Signs Temp Pulse Resp BP Pulse Ox 36.7 C 116 H 17 134/98 H 96 11/12/16 08:00 11/12/16 10:33 11/12/16 08:00 11/12/16 10:33 11/12/16 08:00 Laboratory Results 11/12/16 05:04 11/12/16 05:04 11/11/16 11/12/16 11/13/16 05:59 05:59 05:59 Intake Total 1811 Output Total 25 Balance 1810 - - Physical Exam Constitutional: chronically ill appearing, uncomfortable, cachectic, No no apparent distress ( mild to moderate), No not in pain Eyes: other ( close) Cardiovascular: irregularly irregular, tachycardia, No systolic murmur, No edema Respiratory: inspiratory crackles, No reduced air movement, No expiratory wheeze , No bronchial breath sounds Gastrointestinal: normoactive bowel sounds, soft, non-tender abdomen, no palpable masses Genitourinary: no bladder fullness, no bladder tenderness, no renal bruits Musculoskeletal: other ( significant diffuse muscle wasting) Neurologic: other ( alert awake oriented times 0) Psychiatric: encephalopathic, anxious, agitated, poor insight, poor judgement, poor memory, other ( not following commands) ICD10 Worksheet Patient Problems: Problems Problem Status Onset Urinary tract infection Acute
[2016-11-12] MEDS: HALOPERIDOL LACT 5 MG/ML INJ IVP PRN (22:12)
[2016-11-12] MEDS ORDERED: HYDROmorphONE/DILAUDID 1 MG/ML SYR IVP ONE (23:30)
[2016-11-13] MEDS: ACETAMINOPHEN 500 MG TAB PO SCH ×2 (00:03→08:34)
[2016-11-13] MEDS: guaiFENesin 600 MG TAB.ER PO SCH ×2 (00:04→08:35)
[2016-11-13] MEDS: LIDOCAINE 3% TP SCH ×2 (00:05→09:53)
[2016-11-13] MEDS: MIRTAZAPINE 15 MG TAB PO SCH ×2 (00:06→20:27)
[2016-11-13] MEDS: NORTRIPTYLINE HCL 10 MG CAP PO SCH ×2 (00:06→20:27)
[2016-11-13] MEDS: traZODone 50 MG TAB PO SCH (00:07)
[2016-11-13] MEDS: QUEtiapine FUMARATE 25 MG TAB PO SCH ×3 (00:07→20:27)
[2016-11-13] MEDS: HYDROmorphONE/DILAUDID 1 MG/ML SYR IVP PRN ×7 (03:50→23:06)
[2016-11-13] MEDS: LORazepam 2 MG/ML INJ IVP PRN ×4 (03:58→17:25)
[2016-11-13] MEDS ORDERED: NS BOLUS 500 ML (Wide open) IV ONE (04:30)
[2016-11-13 05:35] LABS: % IMMATURE GRANULYOCYTES 0.4 % (0.0-1.1); ABSOLUTE IMMATURE GRANULOCYTES 0.07 10^3/uL (0.00-0.10); ADD DIFF? NO; ADD MORPH? NO; ADD SCAN? NO; ATYPICAL LYMPHOCYTE FLAG 0 (0-99); FRAGMENT RBC FLAG 0 (0-99); HEMATOCRIT 46.7 % (38.0-47.0); HEMOGLOBIN 14.5 g/dL (12.6-16.3); LEFT SHIFT FLG 0 (0-99); LIPEMIA HEMOLYSIS FLAG 80 (0-99); MEAN CELL HEMOGLOBIN 30.3 pg (27.9-34.1); MEAN CELL VOLUME 97.5 fL (81.5-99.8); MEAN PLATELET VOLUME 11.2 fL (8.7-11.7); PLATELET CLUMPS FLAG 0 (0-99); PLATELET COUNT 356 10^3/uL (150-400); RED BLOOD CELL COUNT 4.79 10^6/uL (4.18-5.33); RED CELL DISTRIBUTION WIDTH 13.8 % (11.5-15.2)
[2016-11-13] MEDS: METOPROLOL TARTRATE 5 MG/5 ML INJ IVP SCH ×3 (05:48→17:41)
[2016-11-13 06:03] LABS: ANION GAP 12 mEq/L (8-16); CALCIUM 9.4 mg/dL (8.5-10.4); CARBON DIOXIDE 28 mEq/l (22-31); CHLORIDE 105 mEq/L (97-110); CREATININE 0.5 mg/dL (0.6-1.0); GLOMERULAR FILTRATION RATE > 60; GLUCOSE 99 mg/dL (70-100); MAGNESIUM 2.1 mg/dL (1.6-2.3); POTASSIUM 3.9 mEq/L (3.5-5.2); SODIUM 145 mEq/L (134-144)
[2016-11-13] MEDS: ASPIRIN 81 MG CHEWABLE TAB PO SCH (08:34)
[2016-11-13] MEDS: DIGOXIN 125 MCG TAB PO SCH (08:35)
[2016-11-13] MEDS: FLUTICASONE PROPIONATE IH SCH ×2 (08:35→20:27)
[2016-11-13] MEDS: FLUTICASONE NASAL 120 SPRAYS/16 GM MDI EACHNARE SCH (08:35)
[2016-11-13] MEDS: PANTOPRAZOLE SODIUM 40 MG TAB PO SCH (08:36)
[2016-11-13] MEDS: MULTIVITAMINS 1 EACH TAB PO SCH (08:36)
[2016-11-13] MEDS: POLYETHYLENE GLYCOL 3350 17 GM PKT PO SCH (08:37)
--- NOTE | 2016-11-13 09:46 | WOCRNPDOC ---
WOCRN Advanced Assessment Note - Skin Integrity Problem, Advanced Assess Bilateral Elbow Pressure Injury Dressing Type: Allevyn Life Dressing Description: Clean/Dry, Intact Exudate Amount: None Exudate Characteristic(s): None Integumentary Issue Intervention: Visualized Under Dressing Tavo Wound Tissue: Blanching, Ecchymotic, Erythema, Intact Tavo Wound Swelling: None Skin Integrity Problem Comment: Blanching noted to both elbows, most likely r/t friction from pushing herself against bedding. There is no pressure injury at this time. Skin is presently intact, and there is some ecchymosis noted surrounding R elbow. Nursing placed Allevyn Life dressings prophylactically on both elbows, because patient is extremely agiatated and not tolerating protective devices (such as Heel-bows). Continue to monitor. Right Lower Arm Dressing Type: Open to Air Exudate Amount: Minimal Exudate Color: Reddish/Yellow Exudate Characteristic(s): Serosanguinous Integumentary Issue Intervention: Dressing Applied Tavo Wound Tissue: Ecchymotic, Thin, Dry Tavo Wound Swelling: Mild Wound Bed Color: Red, Yellow Wound Bed Constitution: Smooth Tissue, Mixed Loose & Adhered Slough/Eschar Site Measurement - Head-to-Toe Length X Width X Depth (cm): 2.3cmx1.6cmx slough Skin Integrity Problem Comment: Wound noted to R forearm under patient's hospital ID band. Injury looks as though it could have been cause by abrasion from the band, but I am uncertain of etiology. Wound is presently slough-filled , w/ mild tavo-wound erythema noted and scattered ecchymosis throughout R arm. Applied hydrocolloid dressing to initiate autolytic debridement.
[2016-11-13] MEDS: ENOXAPARIN 40 MG/0.4 ML SYR SC SCH (09:47)
[2016-11-13] MEDS: oxyCODONE IR 5 MG TAB PO SCH (09:53)
[2016-11-13] MEDS ORDERED: HYDROmorphONE/DILAUDID 1 MG/ML SYR IVP ONE (10:30)
[2016-11-13] MEDS: LIDOCAINE 5% 1 EA PATCH TD SCH (11:48)
--- NOTE | 2016-11-13 14:59 | HOSPPROG ---
Hospitalist Progress Note Assessment/Plan: 86-year-old female presents with acute on chronic encephalopathy in the setting of suspected urinary tract infection, SIRS Plan: 1. Acute on chronic encephalopathy. Evidenced by global brain dysfunction characterized as agitation plus uncooperative behavior plus significant decline in cognitive functioning over the past several days resulting in patient unable to eat or drink, this is reportedly an objective, acute change from her baseline which is normally able to verbally communicate wants and needs as well as participate cooperatively in daily care, confirmed with her daughter, most likely secondary to a combination of toxic encephalopathy from ineffectively treated urinary tract infection and metabolic encephalopathy from dehydration/ uremia -utilizing sitter preferentially for behavior modification, IV ativan has been helpful (takes chronically), as has pain Rx as her agitation seems to be significantly impacted by pain -Palliative care consult today, will likely head to hospice. A hospice consult has been ordered -Her daughter is the MPOA 2. Dehydration/uremia. Acute, evidenced by BUN of 40 with a creatinine of 0.5 as well as ketones and protein in the urinalysis and a history of not eating and drinking prior to arrival -responded to IVF. She has minimal oral intake today and will provide IVF at maintenance doses. -monitor daily 3. Suspected urinary tract infection. Ineffectively treated as an outpatient with oral ciprofloxacin, patient unable to tolerate oral intake [employer], necessitating IV antibiotics in order to successfully treat -On Rocephin 4. Atrial fibrillation. Suspect permanent, uncontrolled RVR, patient not taking oral meds well so she has not been getting her oral diltiazem and did not appreciably respond to dilt boluses -holding digoxin given elevated level - scheduled IV metoprolol 5. Chronic systolic congestive heart failure. Chronic, systolic per PCP records , has had two admission for volume overload over past 2 months -holding lasix right now, as PO intake poor 6. COPD. Chronic, no indication of acute exacerbation 7. 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 Restarted oral oxy IR lower dosage, PRN iv dilaudid, PO roxanol at RN discretion -recommend comfort care/hospice, as the patient seems quite uncomfortable and chance of clinical improvement is low -cont IV ativan PRN 8. Obstructive sleep apnea. Continue patient on nocturnal oxygen 9. Severe protein calorie malnutrition. Evidenced by prox muscle wasting and cachexia w/ low BMI -dietary consult -ensure w/ meals 10. Pressure injury. POA, appreciate wound care note/tx 11. SIRS. Acute, new problem, further w/u indicated. Tachycardia + worsening leukocytosis, unclear source. -CXR w/o infiltrate -flu PCR neg -BCx sent -CDiff if diarrhea -unable to determine whether localizing signs of infxn Diet. Regular as tolerated Prophylaxis. High risk patient Lovenox 40 Code status. Do not resuscitate per her daughter who is her MPOA Disposition. will wait hospice and official direction. I've stopped some PO meds given that she has not bee taking them. Patient is high risk of morbidity / mortality based on the constellation of medical comorbidities above. S: minimal oral intake awaiting hospice O: VS reviewed NAD, chronically ill appearing AAOx3 MM dry RRR Decreased lung sounds no edema Objective: Vital Signs Temp Pulse Resp BP Pulse Ox 36.7 C 117 H 20 143/91 H 99 11/13/16 11:57 11/13/16 11:57 11/13/16 11:57 11/13/16 11:57 11/13/16 08:00 Laboratory Results 11/13/16 05:10 11/13/16 05:10 11/12/16 11/13/16 11/14/16 05:59 05:59 05:59 Intake Total 1811 250 Output Total 325 Balance 1811 -75 ICD10 Worksheet Patient Problems: Problems Problem Status Onset Urinary tract infection Acute
[2016-11-13] MEDS ORDERED: NS 2,000 ML IV SCH (15:00)
--- NOTE | 2016-11-13 15:58 | PDPCPN ---
Palliative Care Progress Note Assessment/Plan: Referring provider: Dr fontaine Reason for consult: Complex medical decision making Symptom control HPI: Maia Gordon is a 86 yo female with PMH dementia, a fib, CAD, CVA, and CHF admitted to the hospital from [facility] for altered mental status with agitation and possible UTI. Started treatment for UTI as outpatient but not able to take in po and no longer talking. On admission UA with resolving UTI, started on IV antibiotics for complete treatment. No acute causes found for AMS. Agitated throughout hospitalization, helped somewhat by pain and anxiety medication. Palliative care consulted for complex medical decision making. Met with daughter Makenzie outside of the room. Makenzie described her mother as being a very independent person all of her life. 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 She was dx with dementia about 5 years ago and was doing relatively well in senior housing until in earlier August she began falling more frequently. She was hospitalized for PNA and sent to rehab at discharge. From there she went home for a few days but it was clear she was not able to live by herself anymore, frequently forgetting her medications and not eating or drinking anymore. Makenzie states her mother always loved to eat and started just "forgetting" to eat. She was hospitalized again then sent to [facility] for LTC at discharge. At per Makenzie she was unhappy being in a skilled nursing. She frequently has had UTIs in the past but has always recovered back to herself after a couple of days of treatment. We discussed her current status with having 4 days of IV antibiotics in addition to PO antibiotics prior to arrival with no improvement in mental status. Maia has had chronic back pain with neuropathic component for a number of years and was well managed with gabapentin, lidocaine patches, and narcotics. Here she is unable to take her standard PO medications and pain has been difficult to manage with IV dilaudid. Using 4mg IV yesterday and 2mg so far this morning. Per Makenzie she has hallucinations with morphine. In addition she has been taking scheduled ativan for anxiety at home and using PRN IV here. Makenzie stated she feels her mother may not recovery as she had before from this UTI. Discussed she may be at the end of her life with not recovering and stopping eating/drinking. Discussed options including hospice care to focus on comfort. Makenzie agrees that at this point, she is not recovering and the focus should be on comfort care only. Assessment: Physical: - Pain: chronic back pain with neuropathic component in legs - on scheduled oxy daily and tylenol - dilaudid IV PRN - discontinued morphine per daughter causes hallucinations - added lidocaine - takes gabapentin 900 mg Q8hr at home- unable to take po currently - constipation - dulcolax supp daily PRN Emotional/psychological: Acute encephalopathy: - low stimulation - normally takes ativan scheduled at home - haldol for severe agitation Advanced Care Planning: Is patient decisional?: No Code Status: DNR/DNI POA: daughter is decision maker. Plan: [facility] inpatient hospice to [facility] tomorrow AM. Requires inpt hospice care for uncontrolled symptoms needing frequent IV medication. Subjective: moans to all questions Objective: Social History: . 1 daughter and 1 son involved. 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 Enjoys eating and traveling. Medication list reviewed ROS: unable to obtain Functional assessment: PPS: 20% Functional status: dependent on ADLs, IADLs Vital Signs Temp Pulse Resp BP Pulse Ox 36.4 C 97 18 125/88 H 99 11/13/16 15:47 11/13/16 15:47 11/13/16 15:47 11/13/16 15:47 11/13/16 15:47 Laboratory Results 11/13/16 05:10 11/13/16 05:10 11/12/16 11/13/16 11/14/16 05:59 05:59 05:59 Intake Total 1811 250 Output Total 325 Balance 1811 -75 Physical Exam - Physical Exam General Appearance: moderate distress, other (moans does not respond to commands ) Respiratory: No respiratory distress, No accessory muscle use Skin: normal color, warm/dry Extremities: No pedal edema Neuro/Psych: other (not responding to questions, opens eye to voice) ICD10 Worksheet Patient Problems: Problems Problem Status Onset Palliative care encounter Acute Urinary tract infection Acute - ICD10 Problem Qualifiers (1) Palliative care encounter
[2016-11-13] MEDS ORDERED: PATCH REMOVAL 1 EA PATCH TD SCH (21:00)
[2016-11-14] MEDS: METOPROLOL TARTRATE 5 MG/5 ML INJ IVP SCH ×3 (01:46→13:13)
[2016-11-14] MEDS: HYDROmorphONE/DILAUDID 1 MG/ML SYR IVP PRN ×3 (03:29→08:58)
[2016-11-14] MEDS: LORazepam 2 MG/ML INJ IVP PRN ×2 (03:29→07:35)
[2016-11-14] MEDS: LIDOCAINE 5% 1 EA PATCH TD SCH (04:11)
[2016-11-14 07:50] VITALS: BP 142/112; PULSE 129; RESP 16; TEMP 98.2; O2SAT 100
[2016-11-14] MEDS ORDERED: LIDOCAINE 5% 1 EA PATCH TD SCH (09:00)
[2016-11-14] MEDS ORDERED: LORazepam 2 MG/ML INJ IVP ONE (09:30)
[2016-11-14] MEDS: FLUTICASONE PROPIONATE IH SCH (09:32)
[2016-11-14] MEDS ORDERED: LORazepam 2 MG/ML INJ IVP PRN (09:32)
--- NOTE | 2016-11-14 09:36 | HOSPPROG ---
Hospitalist Progress Note Assessment/Plan: 86-year-old female presents with acute on chronic encephalopathy in the setting of suspected urinary tract infection, SIRS Plan: 1. Acute on chronic encephalopathy. Evidenced by global brain dysfunction characterized as agitation plus uncooperative behavior plus significant decline in cognitive functioning over the past several days resulting in patient unable to eat or drink, this is reportedly an objective, acute change from her baseline which is normally able to verbally communicate wants and needs as well as participate cooperatively in daily care, confirmed with her daughter, most likely secondary to a combination of toxic encephalopathy from ineffectively treated urinary tract infection and metabolic encephalopathy from dehydration/ uremia -utilizing sitter preferentially for behavior modification, IV ativan has been helpful (takes chronically), as has pain Rx as her agitation seems to be significantly impacted by pain -Palliative care consult today, will likely head to hospice. A hospice consult has been ordered -Her daughter is the MPOA 2. Dehydration/uremia. Acute, evidenced by BUN of 40 with a creatinine of 0.5 as well as ketones and protein in the urinalysis and a history of not eating and drinking prior to arrival -responded to IVF. She has minimal oral intake today and will provide IVF at maintenance doses. -monitor daily 3. Suspected urinary tract infection. Ineffectively treated as an outpatient with oral ciprofloxacin, patient unable to tolerate oral intake [employer], necessitating IV antibiotics in order to successfully treat -Treated with Rocephin. Completed course 4. Atrial fibrillation. Suspect permanent, uncontrolled RVR, patient not taking oral meds well so she has not been getting her oral diltiazem and did not appreciably respond to dilt boluses -Not taking Digoxin, not taking PO - scheduled IV metoprolol 5. Chronic systolic congestive heart failure. 6. COPD. Chronic, no indication of acute exacerbation 7. 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 8. Obstructive sleep apnea. Continue patient on nocturnal oxygen 9. Severe protein calorie malnutrition. Evidenced by prox muscle wasting and cachexia w/ low BMI -dietary consult -ensure w/ meals 10. Pressure injury. POA, appreciate wound care note/tx 11. SIRS. Acute, new problem, further w/u indicated. Tachycardia + worsening leukocytosis, unclear source. -CXR w/o infiltrate -flu PCR neg -BCx sent -CDiff if diarrhea -unable to determine whether localizing signs of infxn Diet. Regular as tolerated Prophylaxis. High risk patient Lovenox 40 Code status. Do not resuscitate per her daughter who is her MPOA Disposition/Plan: -Hospice consult pending -Will provide IVF, pain mgmt, anxiety mgmt, symptom control until notice from hospice total care time is 30 mins. S: minimal oral intake, some agitation awaiting hospice O: VS reviewed NAD, chronically ill appearing AAOx3 MM dry RRR Decreased lung sounds no edema Objective: Vital Signs Temp Pulse Resp BP Pulse Ox 36.8 C 129 H 16 142/112 H 100 11/14/16 07:47 11/14/16 07:47 11/14/16 07:47 11/14/16 07:47 11/14/16 07:47 Laboratory Results 11/13/16 05:10 11/13/16 05:10 11/13/16 11/14/16 11/15/16 05:59 05:59 05:59 Intake Total 250 0 Output Total 325 Balance -75 0 ICD10 Worksheet Patient Problems: Problems Problem Status Onset Palliative care encounter Acute Urinary tract infection Acute
[2016-11-14] MEDS ORDERED: NS W/ 20 KCl/L 1,000 ML IV SCH (09:45)
[2016-11-14] MEDS: DIGOXIN 125 MCG TAB PO SCH (10:20)
[2016-11-14] MEDS: ENOXAPARIN 40 MG/0.4 ML SYR SC SCH (10:20)
[2016-11-14] MEDS: FLUTICASONE NASAL 120 SPRAYS/16 GM MDI EACHNARE SCH (10:20)
[2016-11-14] MEDS: MULTIVITAMINS 1 EACH TAB PO SCH (10:21)
[2016-11-14] MEDS: oxyCODONE IR 5 MG TAB PO SCH (10:21)
[2016-11-14] MEDS: POLYETHYLENE GLYCOL 3350 17 GM PKT PO SCH (10:21)
[2016-11-14] MEDS: PANTOPRAZOLE SODIUM 40 MG TAB PO SCH (10:21)
[2016-11-14] MEDS: QUEtiapine FUMARATE 25 MG TAB PO SCH (10:22)
--- NOTE | 2016-11-14 11:33 | PDIAF ---
- Diagnosis Diagnosis: SIRS, End of Life Care Code Status: Do Not Resuscitate - Medication Management Discharge Medications: Medications to Continue on Transfer HYDROmorphone HCL [Dilaudid] 0.5 - 1 mg IVP Q2 PRN #0 syr 11/14/16 [Last Taken Unknown] Haloperidol Lactate [Haldol Injection] 0.5 - 2.5 mg IVP Q4 PRN #0 inj 11/14/16 [ Last Taken Unknown] LORazepam [Ativan inj 2 mg/ml (*)] 0.5 mg IVP Q2 PRN #0 inj 11/14/16 [Last Taken Unknown] Lidocaine 5% [Lidoderm 5% Patch (*)] 4 ea TD DAILY #0 patch 11/14/16 [Last Taken Unknown] Discharge Medications: Refer to the Discharge Home Medication list for PRN reason. - Orders Diet Recommendation: no restrictions on diet Diet Texture: None - Follow Up Care Current Providers and Referrals: Patient,NotPresent [Unknown] - As per Instructions
--- NOTE | 2016-11-14 11:36 | PDDCSUM ---
Discharge Summary Discharge Summary: HPI/Hospital Course 86-year-old female presents with acute on chronic encephalopathy in the setting of suspected urinary tract infection, SIRS. Please see below for details per problem list. Ultimately the family transitioned care toward end of life care. She is being discharged to an inpatient hospice. DDX: 1. Acute on chronic encephalopathy. -Her daughter is the MPOA 2. Dehydration/uremia. 3. Suspected urinary tract infection. -Treated with Rocephin. Completed course 4. Atrial fibrillation. 5. Chronic systolic congestive heart failure. 6. COPD. Chronic, no indication of acute exacerbation 7. 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 8. Obstructive sleep apnea. Continue patient on nocturnal oxygen 9. Severe protein calorie malnutrition. Evidenced by prox muscle wasting and cachexia w/ low BMI 10. Pressure injury. POA, appreciate wound care note/tx 11. SIRS. Acute, new problem, further w/u indicated. Tachycardia + worsening leukocytosis, unclear source. -CXR w/o infiltrate -flu PCR neg -BCx sent -CDiff if diarrhea -unable to determine whether localizing signs of infxn Code status. Do not resuscitate per her daughter who is her MPOA Meds: see med rec: Comfort/Pain mgmt O: VS reviewed NAD, chronically ill appearing AAOx3 MM dry RRR Decreased lung sounds no edema total care time spent on discharge is 45 minutes. Further care per Hospice
== END 2016-11-14 13:03 | disposition hospice, home (50) | DRG 70 ==
LOC: EDUNIT# → INTOOBSV 14:13 → F3E 15:15 → OBSVTOIN 11-11 12:49 → F3E 11-13 18:22
PROVIDERS: ADMIT Family Medicine; ATTEND Family Medicine
DX: G93.41 Metabolic encephalopathy (principal); E43 Unspecified severe protein-calorie malnutrition; F13.251 Sedative, hypnotic or anxiolytic dependence with sedative, hypnotic or anxiolytic-induced psychotic disorder with hallucinations; N39.0 Urinary tract infection, site not specified; R65.10 Systemic inflammatory response syndrome (SIRS) of non-infectious origin without acute organ dysfunction; F11.20 Opioid dependence, uncomplicated; I50.22 Chronic systolic (congestive) heart failure; G93.49 Other encephalopathy; L89.151 Pressure ulcer of sacral region, stage 1; E86.0 Dehydration; I48.91 Unspecified atrial fibrillation; G47.33 Obstructive sleep apnea (adult) (pediatric); J44.9 Chronic obstructive pulmonary disease, unspecified; G89.29 Other chronic pain; M81.0 Age-related osteoporosis without current pathological fracture; Z66 Do not resuscitate; Z85.828 Personal history of other malignant neoplasm of skin
CPT/HCPCS: 96365; G0378; J0696; J1160; J1170; J1650; J1956